=== PATIENT | female | born 1990 | race American Indian/Alaskan Native ===

== ENCOUNTER 2018-08-11 13:22 | Emergency (ER) | payer MEDICAID | END 2018-08-11 13:41 | disposition left against medical advice (07) | LOC: ED 13:22 | DX: M79.675 Pain in left toe(s) (principal); Z53.21 Procedure and treatment not carried out due to patient leaving prior to being seen by health care provider ==

== ENCOUNTER 2021-07-25 17:44 | Emergency (ER) | payer MEDICAID ==
[2021-07-25 18:03] VITALS: BP 134/66
--- NOTE | 2021-07-25 22:16 | XRay Report ---
LEFT KNEE 3 VIEWS INDICATION / CLINICAL INFORMATION: Fall with left knee pain. COMPARISON: None available. FINDINGS: BONES / JOINT(S): There is a small to moderate suprapatellar joint effusion. No significant arthritis . I see no evidence of acute fracture or subluxation. SOFT TISSUES: No significant abnormality. ADDITIONAL FINDINGS: None. Signer Name: Francis Hagen MD Signed: 07/25/2021 10:12 PM Workstation Name: [id number]
[2021-07-26] MEDS ORDERED: oxyCODONE /ACETAMINOPHEN 5-325MG TAB PO ONE (00:01)
--- NOTE | 2021-07-26 00:07 | Emergency Department Report ---
ED Lower Extremity HPI - General Chief Complaint: Fall Stated Complaint: KNEE PAIN Time Seen by Provider: 07/25/21 21:13 Source: EMS Mode of arrival: Stretcher Limitations: Physical Limitation - History of Present Illness MD Complaint: knee injury - Related Data Previous Rx's Medication Instructions Recorded Last Taken Type Ibuprofen [Motrin] 800 mg PO Q8H PRN #30 tablet 08/07/14 Unknown Rx Sulfamethoxazole/Trimethoprim 1 each PO BID #14 tablet 08/07/14 Unknown Rx [Bactrim Ds] traMADoL [Ultram 50 MG tab] 50 mg PO Q4HR PRN #10 tablet 08/07/14 Unknown Rx Allergies Allergy/AdvReac Type Severity Reaction Status Date / Time tramadol AdvReac Vomiting Verified 08/11/18 13:24 ED Review of Systems ROS: Stated complaint: KNEE PAIN Other details as noted in HPI Comment: All other systems reviewed and negative ED Past Medical Hx - Past Medical History Previous Medical History?: Yes Hx Hypertension: No Hx CVA: No Hx Heart Attack/AMI: No Hx Diabetes: No Hx Deep Vein Thrombosis: No Hx Pulmonary Embolism: No Hx GERD: No Hx Liver Disease: No Hx Renal Disease: No Hx Sickle Cell Disease: No Hx Arthritis: No Hx Headaches / Migraines: Yes Hx Seizures: No Hx Kidney Stones: No Hx Psychiatric Treatment: No Hx Asthma: No Hx Tuberculosis: No Hx Dementia: No Hx HIV: No Additional medical history: Vaginal delivery X3 with one child born "still '' 2 miscarriage - Surgical History Hx Coronary Stent: No Hx Open Heart Surgery: No Hx Pacemaker: No Hx Internal Defibrillator: No Hx Cholecystectomy: No Hx Appendectomy: No Hx Breast Surgery: No - Social History Smoking Status: Never Smoker Substance Use Type: None - Medications Home Medications: Home Medications Medication Instructions Recorded Confirmed Last Taken Type Ibuprofen [Motrin] 800 mg PO Q8H PRN #30 tablet 08/07/14 Unknown Rx Sulfamethoxazole/Trimethoprim 1 each PO BID #14 tablet 08/07/14 Unknown Rx [Bactrim Ds] traMADoL [Ultram 50 MG tab] 50 mg PO Q4HR PRN #10 tablet 08/07/14 Unknown Rx ED Physical Exam - General Limitations: Physical Limitation General appearance: alert, in no apparent distress - Head Head exam: Present: atraumatic, normocephalic - Eye Eye exam: Present: normal appearance, PERRL, EOMI Pupils: Present: normal accommodation - ENT ENT exam: Present: mucous membranes moist - Neck Neck exam: Present: normal inspection, full ROM - Respiratory Respiratory exam: Present: normal lung sounds bilaterally. Absent: respiratory distress, rales, rhonchi, chest wall tenderness, accessory muscle use - Cardiovascular Cardiovascular Exam: Present: regular rate, normal rhythm. Absent: systolic murmur, diastolic murmur, rubs, gallop - GI/Abdominal GI/Abdominal exam: Present: soft, normal bowel sounds - Extremities Exam Extremities exam: Present: normal inspection, tenderness, normal capillary refill - Expanded Lower Extremity Exam Left Knee exam: Present: tenderness, swelling, effusion, pain/laxity with valgus, pain/laxity with varus. Absent: laceration, ecchymosis, deformity, posterior draw sign, full knee extension - Back Exam Back exam: Present: normal inspection - Neurological Exam Neurological exam: Present: alert, oriented X3 - Psychiatric Psychiatric exam: Present: normal affect, normal mood - Skin Skin exam: Present: warm, dry, intact, normal color. Absent: rash ED Course Vital Signs 07/25/21 18:00 Pulse Rate 86 Respiratory 18 Rate Blood Pressure 134/66 [Left] O2 Sat by Pulse 98 Oximetry ED Lower Extremity MDM - Radiology Data Radiology results: report reviewed [facility] [address] [place] [address] XRay Report Signed Patient: CRYSTAL WALLIS MR#: [id number] : 1990 Acct:[id number] Age/Sex: 30 / F ADM Date: 07/25/21 Loc: ED Attending Dr: Ordering Physician: LOIS LEBRON Date of Service: 07/25/21 Procedure(s): XR knee 3V LT Accession Number(s): [id number] cc: LOIS LEBRON Fluoro Time In Minutes: LEFT KNEE 3 VIEWS INDICATION / CLINICAL INFORMATION: Fall with left knee pain. COMPARISON: None available. FINDINGS: BONES / JOINT(S): There is a small to moderate suprapatellar joint effusion. No significant arthritis. I see no evidence of acute fracture or subluxation. SOFT TISSUES: No significant abnormality. ADDITIONAL FINDINGS: None. Signer Name: Francis Hagen MD Signed: 07/25/2021 10:12 PM Workstation Name: [id number] Transcribed By: RT Dictated By: Francis Hagen MD Electronically Authenticated By: Francis Hagen MD Signed Date/Time: 07/25/212211 DD/ 10 TD/TT: Critical care attestation.: If time is entered above; I have spent that time in minutes in the direct care of this critically ill patient, excluding procedure time. ED Disposition Clinical Impression: Internal derangement of left knee Disposition: 01 HOME / SELF CARE / HOMELESS Is pt being admited?: No Does the pt Need Aspirin: No Condition: Stable Instructions: How to Use a Knee Immobilizer, Meniscus Tear, Acute Knee Pain, Adult, Knee Effusion, [id number]-Duks, Combined Knee Ligament Sprain Referrals: MAURY VILLALOBOS MD [Primary Care Provider] - 3-5 Days
== END 2021-07-26 00:26 | disposition home or self-care (01) ==
LOC: ED 17:44
DX: M23.92 Unspecified internal derangement of left knee (principal); G43.909 Migraine, unspecified, not intractable, without status migrainosus; Z91.09 Other allergy status, other than to drugs and biological substances; Z79.899 Other long term (current) drug therapy
CPT/HCPCS: 99283

== ENCOUNTER 2021-08-23 15:22 | Emergency (ER) | payer MEDICAID ==
[2021-08-23 15:31] VITALS: BP 120/60
== END 2021-08-24 07:52 | disposition left against medical advice (07) ==
LOC: ED 15:22
DX: Z04.1 Encounter for examination and observation following transport accident (principal); Z53.21 Procedure and treatment not carried out due to patient leaving prior to being seen by health care provider; V89.2XXA Person injured in unspecified motor-vehicle accident, traffic, initial encounter; Y93.89 Activity, other specified; Y92.89 Other specified places as the place of occurrence of the external cause; Y99.8 Other external cause status